=== PATIENT | male | born 1955 | race Caucasian/White ===

== ENCOUNTER 2016-12-18 08:07 | Emergency (ER) | payer SELFPAY ==
[~2016-12-18] VITALS: Ht 160 cm; Wt 80.0 kg
[2016-12-18 08:08] VITALS: BP 145/86; PULSE 75; RESP 14; TEMP 97.4; O2SAT 95
--- NOTE | 2016-12-18 10:02 | PD ---
HPI Chief Complaint: Pain: Acute or Chronic Time Seen by Provider: 09:40 Travel History International Travel<30 days: No Contact w/Intl Traveler<30days: No Traveled to known affect area: No History of Present Illness HPI Patient is a 61-year-old male presenting to the emergency for evaluation of left knee pain and swelling. Patient states the symptoms started 3 days ago. He denies any redness but states he has a history of gout and believes that it is gout again. He has never had gout in that specific joint. He reports his pain as a 6 out of 10. PFSH Past Medical History Cardiovascular Problems: Yes (htn) Gout: Yes Social History Alcohol Use: Yes Tobacco Use: No Substance Use: No Allergies-Medications (Allergen,Severity, Reaction): Coded Allergies: No Known Allergies (Unverified , 12/18/16) Reported Meds & Prescriptions Reported Meds & Active Scripts Active No Active Prescriptions or Reported Medications Review of Systems Except as stated in HPI: all other systems reviewed are Neg Musculoskeletal: Positive: Myalgias, Edema, Pain Physical Exam Narrative GENERAL: Well-nourished, well-developed patient. SKIN: Warm and dry. HEAD: Normocephalic. EYES: No scleral icterus. No injection or drainage. NECK: Supple, trachea midline. No JVD or lymphadenopathy. CARDIOVASCULAR: Regular rate and rhythm without murmurs, gallops, or rubs. RESPIRATORY: Breath sounds equal bilaterally. No accessory muscle use. GASTROINTESTINAL: Abdomen soft, non-tender, nondistended. MUSCULOSKELETAL: No cyanosis, moderate edema noted to the left knee. No erythema, warm to the touch. Full range of motion in bilateral lower extremities. Positive pedal pulse. BACK: Nontender without obvious deformity. No CVA tenderness. Data Data Last Documented VS Vital Signs Date Time Temp Pulse Resp B/P Pulse Ox O2 Delivery O2 Flow Rate FiO2 12/18/16 08:08 97.4 75 14 145/86 95 Room Air Orders Synovial Fl Cell Count + Diff (12/18/16 09:15) Synovial Fluid Crystals (12/18/16 09:15) Synovial Fluid Total Protein (12/18/16 09:15) Fluid Culture And Gram Stain (12/18/16 09:15) Labs Laboratory Tests Test 12/18/16 09:35 Synovial Fluid Color YELLOW Synovial Fluid Appearance MARKED Synovial Fluid WBC 43898 /MM3 Synovial Fluid RBC 590 /MM3 Synovial Fluid Neutrophils 74 % Synovial Fluid Lymphocytes 1 % Synovial Fluid Monocytes 25 % Synovial Fluid Crystals POS - URIC ACID MDM Medical Decision Making Medical Screen Exam Complete: Yes Emergency Medical Condition: Yes Interpretation(s) Laboratory Tests Test 12/18/16 09:35 Synovial Fluid Color YELLOW Synovial Fluid Appearance MARKED Synovial Fluid WBC 93037 /MM3 Synovial Fluid RBC 590 /MM3 Synovial Fluid Neutrophils 74 % Synovial Fluid Lymphocytes 1 % Synovial Fluid Monocytes 25 % Synovial Fluid Crystals POS - URIC ACID Vital Signs Date Time Temp Pulse Resp B/P Pulse Ox O2 Delivery O2 Flow Rate FiO2 12/18/16 08:08 97.4 75 14 145/86 95 Room Air Differential Diagnosis Septic arthritis versus effusion versus gout versus other Narrative Course Patient is a 61-year-old male presenting to emergency for evaluation of 2-3 days of left knee pain and swelling. Patient has significant effusion to the anterior left knee. He reports a history of gout however we have no previous visits to incorporate that. Due to the edema in the knee and aspiration to obtain synovial fluid and have it analyzed would be beneficial. Patient verbally consented to bedside procedure. Synovial fluid sent to lab for analysis. Patient tolerated procedure well. Synovial fluid contains white blood cells at 15,300, red blood cells at 590, neutrophils 74, positive for uric acid crystals. Patient will be given prescription for Colcrys as well as indomethacin. Encouraged to follow-up with a primary doctor ongoing evaluation and management of chronic health problems. Patient was given strict return precautions for any redness, increased swelling, pain, fevers. He was encouraged to keep the dressing on the knee for 24 hours. He was encouraged to avoid excessive intake of beer, organ meats, beans. Patient verbalized understanding of these instructions. Patient is stable for discharge. Procedures Procedure Narrative After the risks and benefits were discussed the following procedure was performed: Patient verbally consented to bedside procedure. Knee joint aspiration: The area was prepped and was sterilely draped. A subcutaneous wheal of 1 % Xylocaine with a total number 1 mL was used to anesthetize the area. The area was properly anesthetized. An 18-gauge needle on a 20 cc syringe was used to aspirate synovial fluid from the medial aspect of the left knee. Synovial fluid was yellow, cloudy in appearance no obvious blood. Synovial fluid was sent for analysis. Sterile dressing applied to knee with Jose J wrap. Patient tolerated procedure well. Diagnosis Primary Impression: Acute gouty arthropathy Referrals: Primary Care Physician Patient Instructions: General Instructions, Gout (ED) Additional Instructions: Return to emergency department immediately for any new or worsening symptoms Take medications as directed Avoid excessive intake of beer, organ meats, beans Maintain adequate fluid intake Keep dressing in place on left knee for 24 hours Follow-up with a primary doctor Med/Other Pt SpecificInfo: Prescription(s) given Scripts Colchicine (Colcrys)0.6 Mg Tab0.6 Mg PO DAILY #3 TAB Ref 0 Take 2 tablets by mouth 1 dose, then 1 tablet one hour later Prov:Blanka Bass 12/18/16 Indomethacin 50 Mg Cap50 Mg PO TID 7 Days Ref 0 Take with food, milk, or antacids to decrease stomach adverse effects. Prov:Blanka Bass 12/18/16 Disposition: 01 DISCHARGE HOME Condition: Stable Blanka Bass Dec 18, 2016 10:02
[2016-12-18 10:38] LABS: SYNOVIAL FLUID CRYSTALS POS - URIC ACID
[2016-12-18 11:47] LABS: WBC, SYNOVIAL FLUID 15300 /MM3 (0-200)
[2016-12-18] MEDS ORDERED: COLC1TAB7 PO (12:06)
[2016-12-18] MEDS ORDERED: INDO50CA PO (12:06)
== END 2016-12-18 12:19 | disposition home or self-care (01) ==
LOC: NEPB 08:07
DX: M10.9 Gout, unspecified (principal); I10 Essential (primary) hypertension
CPT/HCPCS: 20610; 84157; 87070; 87205; 89051; 89060